=== PATIENT | male | born 1960 | race African-American/Black ===

== ENCOUNTER 2018-10-13 05:06 | Emergency (ER) | payer SELFPAY ==
[~2018-10-13] VITALS: Ht 190.5 cm; Wt 122.9 kg
[2018-10-13 05:09] VITALS: Ht 190.5 cm; Wt 122.9 kg
[2018-10-13] MEDS ORDERED: HYDROCHLOROTHIA25 MG PO (05:10)
[2018-10-13 05:22] LABS: APPEARANCE CLEAR (CLEAR); BILIRUBIN NEGATIVE (NEGATIVE); COLOR YELLOW (YELLOW); GLUCOSE NEGATIVE (NEGATIVE); KETONE NEGATIVE (NEGATIVE); NITRITE NEGATIVE (NEGATIVE); PROTEIN NEGATIVE (NEGATIVE); SPECIFIC GRAVITY 1.015 (1.005-1.020); UROBILINOGEN NORMAL (NORMAL)
[2018-10-13 05:49] LABS: BASOPHILS 0.2 % (0-2); EOSINOPHILS 1.4 % (0-7); HEMATOCRIT 42.3 % (42.0-54.0); HEMOGLOBIN 14.6 g/dL (13.5-17.5); IMMATURE GRANULOCYTES 0.6 % (0-5); LYMPHOCYTES 29.2 % (15-50); MCH 29.8 pg (26.0-34.0); MCHC 34.5 g/dL (31.0-37.0); MCV 86.3 fL (80.0-100.0); MEAN PLATELET VOLUME 9.9 fL (7.4-10.4); MONOCYTES 6.3 % (2-11); NEUTROPHILS 62.3 % (40-80); PLATELET COUNT 208 10x3/uL (130-400); RDW 14.7 % (11.5-14.5); WBC 9.4 10x3/uL (4.8-10.8)
[2018-10-13 05:59] LABS: ALBUMIN 3.2 g/dL (3.4-5.0); ALKALINE PHOSPHATASE 73 U/L (46-116); ALT (SGPT) 28 U/L (10-68); APTT 26.2 SECONDS (22.8-39.4); CALC OSMOLALITY 281 mosm/kg (275-300); CALCIUM 8.6 mg/dL (8.5-10.1); CARBON DIOXIDE 25.1 mmol/L (21.0-32.0); CHLORIDE - SERUM 103 mmol/L (98-107); CREATININE - SERUM 1.2 mg/dL (0.6-1.3); GLUCOSE 158 mg/dL (74-106); POTASSIUM - SERUM 3.7 mmol/L (3.5-5.1); PROTEIN - SERUM 6.4 g/dL (6.4-8.2); SODIUM 140 mmol/L (136-145); UREA NITROGEN 12 mg/dL (7-18); eGFR NON AFRICAN AMERICAN 66 mL/min (90-120)
[2018-10-13 06:00] LABS: INR 1.03 (0.85-1.17)
[2018-10-13 06:10] LABS: CKMB 1.9 U/L (0.0-3.6); CREATINE KINASE 363 UL (21-232)
[2018-10-13 06:11] LABS: TROPONIN-I 0.016 ng/mL (0.000-0.060)
[2018-10-13] MEDS ORDERED: ZOFRAN ODT4 MG/UDTAB PO (07:16)
[2018-10-13] MEDS ORDERED: ATIVAN1 MG PO (07:16)
[2018-10-13 07:36] VITALS: BP 142/81
== END 2018-10-13 08:56 | disposition home or self-care (01) ==
LOC: D.ER 05:06
PROVIDERS: Family Medicine
DX: N40.0 Benign prostatic hyperplasia without lower urinary tract symptoms (principal)